=== PATIENT | male | born 1985 | race African-American/Black ===

== ENCOUNTER 2024-12-08 20:08 | Emergency (ER) | payer SELFPAY ==
[~2024-12-08] VITALS: Ht 180.3 cm; Wt 75.0 kg
[2024-12-08 22:50] VITALS: BP 124/75
== END 2024-12-08 22:50 | disposition home or self-care (01) ==
LOC: ED 20:08
DX: S01.81XA Laceration without foreign body of other part of head, initial encounter (principal); R55 Syncope and collapse; F17.290 Nicotine dependence, other tobacco product, uncomplicated; W22.03XA Walked into furniture, initial encounter